=== PATIENT | male | born 1975 | race Hispanic/Latino ===

== ENCOUNTER 2017-07-27 09:23 | Emergency (ER) | payer SELFPAY ==
--- NOTE | 2017-07-27 12:07 | EDPHYS ---
Physician Documentation [facility] Name: Philip Yung Age: 41 yrs Sex: Male : 1975 Arrival Date: 07/27/2017 Time: 09:29 Bed 17 Private MD: None, None ED Physician Dinesh Cota HPI: 07/27 11:58 This 41 yrs old Male presents to ER via Ambulatory with complaints of LRQ Pain.gs 11:58 This 41 yrs old Male presents to ER via Ambulatory with complaints of R sided gs groin pain. 11:58 The patient presents with swelling, of the right inguinal area. Onset: The gs symptoms/episode began/occurred 1 month(s) ago, and became persistent. Modifying factors: the symptoms are aggravated by lifting weight. Associated signs and symptoms: Pertinent negatives: constipation, dysuria, fever, vomiting. Severity of symptoms: At their worst the symptoms were moderate, in the emergency department the symptoms have improved, moderately. The patient has experienced similar episodes in the past, several times. The patient has not recently seen a physician. Historical: - Allergies: 10:04 Aspirin; iw 10:04 NSAIDS; iw 10:04 Tylenol; iw - Home Meds: 10:04 None [Active]; iw - PSHx: 10:04 None; iw - Immunization history:: Adult Immunizations unknown. - Social history:: Smoking status: Patient uses tobacco products, denies chronic smoking, but will smoke occasionally. ROS: 11:58 All other systems are negative. gs Exam: 11:58 Constitutional: The patient appears alert, awake. gs 12:04 Head/Face: Normocephalic, atraumatic. Eyes: Pupils equal round and reactive to light, gs extra-ocular motions intact. Lids and lashes normal. Conjunctiva and sclera are non-icteric and not injected. Cornea within normal limits. Periorbital areas with no swelling, redness, or edema. ENT: Nares patent. No nasal discharge, no septal abnormalities noted. Tympanic membranes are normal and external auditory canals are clear. Oropharynx with no redness, swelling, or masses, exudates, or evidence of obstruction, uvula midline. Mucous membranes moist. Neck: Trachea midline, no thyromegaly or masses palpated, and no cervical lymphadenopathy. Supple, full range of motion without nuchal rigidity, or vertebral point tenderness. No Meningismus. Chest/axilla: Normal chest wall appearance and motion. Nontender with no deformity. No lesions are appreciated. Cardiovascular: Regular rate and rhythm with a normal S1 and S2. No gallops, murmurs, or rubs. Normal PMI, no JVD. No pulse deficits. Respiratory: Lungs have equal breath sounds bilaterally, clear to auscultation and percussion. No rales, rhonchi or wheezes noted. No increased work of breathing, no retractions or nasal flaring. Abdomen/GI: Soft, non-tender, with normal bowel sounds. No distension or tympany. No guarding or rebound. No evidence of tenderness throughout. Back: No spinal tenderness. No costovertebral tenderness. Full range of motion. Skin: Warm, dry with normal turgor. Normal color with no rashes, no lesions, and no evidence of cellulitis. MS/ Extremity: Pulses equal, no cyanosis. Neurovascular intact. Full, normal range of motion. Neuro: Awake and alert, GCS 15, oriented to person, place, time, and situation. Cranial nerves II-XII grossly intact. Motor strength 5/5 in all extremities. Sensory grossly intact. Cerebellar exam normal. Normal gait. 12:04 Abdomen/GI: Hernia: noted in the right inguinal area, incarceration, is not appreciated, tenderness, that is mild. 12:04 : Male external genitalia: normal, no tenderness. Vital Signs: 10:04 BP 171 / 98; Pulse 84; Resp 16; Temp 98.4; Pulse Ox 98% on R/A; Weight 96.16 kg; Height iw 5 ft. 6 in. (167.64 cm); Pain 8/10; 12:21 BP 167 / 89; Pulse 78; Resp 18; Temp 98.2; Pulse Ox 98% on R/A; ph 10:04 Body Mass Index 34.22 (96.16 kg, 167.64 cm) iw MDM: 11:58 Patient medically screened. gs 12:04 Data reviewed: vital signs, nurses notes. gs 12:06 Counseling: I had a detailed discussion with the patient and/or guardian regarding: the gs presence of at least one elevated blood pressure reading (>120/80) during this emergency department visit. Special discussion: I have referred the patient to see his PCP for further evaluation of high blood pressure. Administered Medications: No medications were administered Disposition: 07/27/17 12:06 Discharged to Home. Impression: Unilateral inguinal hernia, without obstruction or gangrene. - Condition is Stable. - Discharge Instructions: Hernia, Managing Your High Blood Pressure. - Medication Reconciliation Form, Thank You Letter, Antibiotic Education, Prescription Opioid Use form. - Follow up: Christiano Vasquez MD; When: 2 - 3 days; Reason: Re-evaluation by your physician. Signatures: Tanvi Rose RN RN Ratna Coyne RN RN CotaDinesh MD MD
--- NOTE | 2017-07-27 12:07 | ER ---
Nurse's Notes [facility] Name: Philip Yung Age: 41 yrs Sex: Male : 1975 Arrival Date: 07/27/2017 Time: 09:29 Bed 17 Private MD: None, None Diagnosis: Unilateral inguinal hernia, without obstruction or gangrene Presentation: 07/27 10:00 Presenting complaint: Patient states: has had pain to right groin X 3 weeks, pain has iw been worse, denies n/v/d, denies pain with uriantion. Transition of care: patient was not received from another setting of care. Onset of symptoms was July 03, 2017. Initial Sepsis Screen: Does the patient meet any 2 criteria? No. Patient's initial sepsis screen is negative. Does the patient have a suspected source of infection? No. Patient's initial sepsis screen is negative. Care prior to arrival: None. 10:00 Method Of Arrival: Ambulatory iw 10:00 Acuity: JOSE A 3 iw Historical: - Allergies: 10:04 Aspirin; iw 10:04 NSAIDS; iw 10:04 Tylenol; iw - Home Meds: 10:04 None [Active]; iw - PSHx: 10:04 None; iw - Immunization history:: Adult Immunizations unknown. - Social history:: Smoking status: Patient uses tobacco products, denies chronic smoking, but will smoke occasionally. Screenin:20 Abuse screen: Denies threats or abuse. Denies injuries from another. Nutritional ph screening: No deficits noted. Tuberculosis screening: No symptoms or risk factors identified. Fall Risk None identified. Assessment: 12:18 General: Appears in no apparent distress. comfortable, well groomed, Behavior is calm, ph cooperative, appropriate for age, Denies fever, feeling ill. Pain: Complains of pain in right inguinal area. Neuro: Level of Consciousness is awake, alert, obeys commands, Oriented to person, place, time, situation. Cardiovascular: Capillary refill < 3 seconds Patient's skin is warm and dry. Respiratory: Airway is patent Respiratory effort is even, unlabored, Respiratory pattern is regular, symmetrical. GI: Patient currently denies abdominal pain, diarrhea, nausea, vomiting. : Denies burning with urination, urinary frequency. Derm: Skin is intact, is healthy with good turgor, Skin is pink, warm \T\ dry. Musculoskeletal: Circulation, motion, and sensation intact. Range of motion: intact in all extremities. Vital Signs: 10:04 BP 171 / 98; Pulse 84; Resp 16; Temp 98.4; Pulse Ox 98% on R/A; Weight 96.16 kg; Height iw 5 ft. 6 in. (167.64 cm); Pain 8/10; 12:21 BP 167 / 89; Pulse 78; Resp 18; Temp 98.2; Pulse Ox 98% on R/A; ph 10:04 Body Mass Index 34.22 (96.16 kg, 167.64 cm) ED Course: 09:29 Patient arrived in ED. mr 09:29 None, None is Private Physician. mr 10:03 Triage completed. iw 10:04 Arm band placed on. iw 11:42 Dinesh Cota MD is Attending Physician. gs 12:05 Christiano Vasquez MD is Referral Physician. gs 12:17 Ratna Coyne RN is Primary Nurse. ph 12:21 Patient has correct armband on for positive identification. Bed in low position. Call ph light in reach. Side rails up X 1. 12:21 No provider procedures requiring assistance completed. Patient did not have IV access ph during this emergency room visit. Administered Medications: No medications were administered Outcome: 12:06 Discharge ordered by . gs 12:22 Discharged to home ambulatory, with family. ph 12:22 Condition: good 12:22 Discharge instructions given to patient, Instructed on discharge instructions, follow up and referral plans. Demonstrated understanding of instructions, follow-up care. 12:22 Patient left the ED. ph Signatures: Katy Ortiz Irene, RN RN Ratna Coyne RN RN ph Dinesh Cota MD MD
== END 2017-07-27 12:22 | disposition home or self-care (01) ==
LOC: ER 09:23
DX: K40.90 Unilateral inguinal hernia, without obstruction or gangrene, not specified as recurrent (principal); Z88.6 Allergy status to analgesic agent
CPT/HCPCS: 99281